=== PATIENT | female | born 1985 | race Two or more races ===

== ENCOUNTER 2017-10-15 10:53 | Emergency (ER) | payer MEDICAID ==
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
[2017-10-15 12:25] LABS: BASO % 0.4 % (0.0-2.0); EOS # 0.1 K/uL (0.0-0.7); EOS % 1.1 % (0.0-4.0); HEMOGLOBIN 11.2 g/dL (12.0-16.0); LYMPH # 1.9 K/uL (1.0-4.3); LYMPH % 27.3 % (20.0-40.0); MEAN CELL VOLUME 86.8 fl (81.0-99.0); MEAN CORPUSCULAR HEMOGLOBIN 28.3 pg (27.0-31.0); MEAN CORPUSCULAR HGB CONC 32.5 g/dL (33.0-37.0); MEAN PLATELET VOLUME 8.2 fl (7.2-11.7); MONO # 0.4 K/uL (0.0-0.8); MONO % 5.2 % (0.0-10.0); NEUT # 4.6 K/uL (1.8-7.0); RBC 3.97 Mil/uL (3.80-5.20); RED CELL DISTRIBUTION WIDTH 14.8 % (11.5-14.5); WHITE BLOOD COUNT 6.9 K/uL (4.8-10.8)
[2017-10-15 13:08] LABS: ALB/GLOB RATIO 1.1 (1.0-2.1); ALBUMIN 3.8 g/dL (3.5-5.0); ALT/SGPT 56 U/L (9-52); AST/SGOT 41 U/L (14-36); BLOOD UREA NITROGEN 14 mg/dl (7-17); CALCIUM 8.9 mg/dL (8.4-10.2); GFR AFRICAN-AMERICAN > 60; GFR NON-AFRICAN AMERICAN > 60
--- NOTE | 2017-10-15 13:50 | RAD ---
HISTORY: routine COMPARISON: No prior. FINDINGS: LUNGS: No active pulmonary disease. PLEURA: No significant pleural effusion identified, no pneumothorax apparent. CARDIOVASCULAR: Normal. OSSEOUS STRUCTURES: No significant abnormalities. VISUALIZED UPPER ABDOMEN: Normal. OTHER FINDINGS: None. IMPRESSION: No active disease.
[2017-10-15 14:51] LABS: SQUAMOUS EPITHIAL 2 /hpf (0-5); URINE BILIRUBIN NEGATIVE (NEGATIVE); URINE BLOOD NEGATIVE (NEGATIVE); URINE CLARITY SLIGHTY-CLOUDY (Clear); URINE COLOR YELLOW (YELLOW); URINE GLUCOSE (UA) NEG (Normal); URINE LEUKOCYTE ESTERASE NEG Leu/uL (Negative); URINE NITRATE NEGATIVE (NEGATIVE); URINE PROTEIN NEGATIVE (NEGATIVE); URINE UROBILINOGEN 0.2-1.0 mg/dL (0.2-1.0)
[2017-10-15 14:56] LABS: BARBITURATES, UR NEGATIVE (NEGATIVE); BENZODIAZEPINES, UR NEGATIVE (NEGATIVE); OPIATES, UR NEGATIVE (NEGATIVE); PHENCYCLIDINE, UR NEGATIVE (NEGATIVE)
--- NOTE | 2017-10-15 22:04 | ED PDOC ---
- Laboratory Results Result Diagrams: 10/15/17 12:20 10/15/17 12:20 - ECG O2 Sat by Pulse Oximetry: 99 (RA) Pulse Ox Interpretation: Normal Medical Decision Making Medical Decision Making: Time: 20:00 --Patient signed out to me by ABIGAIL Lee at 0000 pending transfer to [facility] for crisis, patient is already medically cleared and was already evaluated by [facility] crisis. --EKG: NSR at 92 bpm, R axis, (-) acute ST changes, as read by ABIGAIL. --Labs reviewed. 02:00 --Patient is still awaiting for bed availability. --Patient has been medically cleared for transfer, bed availability still pending. --On re-evaluation, patient is laying in bed comfortably in no acute distress, has no complaints at this time, she is calm and cooperative with staff. On exam , patient remains AAOx3, in no acute distress. Lungs clear to auscultation, cardiac RRR, abdomen soft, non-tender, repeat neuro exam shows no focal findings. Disposition Counseled Patient/Family Regarding: Diagnosis - Clinical Impression Clinical Impression: Visual hallucination - POA Present On Arrival: None - Disposition Disposition: Transfer of Care (to [facility] crisis) Disposition Time: 06:00 Condition: STABLE Forms: [facility] ([place]) - PA / [employer] ASSOCIATE / Resident Statement / has reviewed & agrees with the documentation as recorded.
--- NOTE | 2017-10-16 10:18 | ED PDOC ---
- Laboratory Results Result Diagrams: 10/15/17 12:20 10/15/17 12:20 - ECG O2 Sat by Pulse Oximetry: 99 (RA) Disposition - Clinical Impression Clinical Impression: Visual hallucination - POA Present On Arrival: None - Disposition Disposition: Transfer of Care Disposition Time: 15:00 Condition: FAIR Patient Signed Over To: Martina Magdaleno
--- NOTE | 2017-10-16 10:28 | CARD ---
APPROVED REPORT EKG Measurement Heart [id number] <Conclusion> Normal sinus rhythm with sinus arrhythmia Rightward axis Borderline ECG
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
--- NOTE | 2017-10-16 16:03 | ED PDOC ---
- Laboratory Results Result Diagrams: 10/15/17 12:20 10/15/17 12:20 - ECG O2 Sat by Pulse Oximetry: 98 (RA) Pulse Ox Interpretation: Normal Medical Decision Making Medical Decision Making: Patient signed out to provider at [address] Blue pending bed availability at [facility]. 1700 Pt attempted to leave room. Agitated. Ativan ordered. Symptoms improved and pt calmed. 1745p [place] available [place] [facility] orders/papers. Documented by Linh Hendricks acting as a scribe for Martina Magdaleno MD. All medical record entries made by the Scribe were at my direction and personally dictated by me. I have reviewed the chart and agree that the record accurately reflects my personal performance of the history, physical exam, medical decision making, and the department course for this patient. I have also personally directed, reviewed, and agree with the discharge instructions and disposition. Disposition - Clinical Impression Clinical Impression: Visual hallucination - POA Present On Arrival: None - Disposition Disposition: Other Institution Disposition Time: 15:00 Condition: STABLE
[2017-10-16 18:45] VITALS: BP 116/87; PULSE 89; RESP 21; TEMP 97.8
[2017-10-17 11:39] VITALS: O2SAT 99
== END 2017-10-16 18:56 | disposition short-term general hospital (02) ==
LOC: H.ER 10:53
DX: F29 Unspecified psychosis not due to a substance or known physiological condition (principal)
CPT/HCPCS: 71045; 80053; 81003; 82948; 84702; 85025; 93005; 96372; 99285; G0480; J2060